=== PATIENT | male | born 1945 | race Caucasian/White ===

== ENCOUNTER 2021-07-14 08:00 | Outpatient (CLI) | payer MEDICARE, OTHER ==
--- NOTE | 2021-07-15 09:04 | XRAY Report ---
PROCEDURE: Chest 2 View X-Ray INDICATIONS: ACUTE COUGH TECHNIQUE: 2 view(s) of the chest. COMPARISON: None. FINDINGS: Surgical changes and devices: None. Lungs: Scattered subsegmental scarring/atelectasis. No acute consolidation. Low lung volumes. Pleura: No pleural effusions or pneumothorax. Mediastinum: Mediastinal contours are normal. Heart size is normal. Bones and chest wall: Age-indeterminate lower thoracic compression fracture although the exact level is unclear. Bilateral shoulder joint degeneration incidentally noted IMPRESSION: Scattered subsegmental scarring/atelectasis. No acute consolidation. Age-indeterminate moderate lower thoracic compression fracture. Please correlate to point tenderness to determine the acuity. Reviewed by: Marshall Salmon MD on 07/15/2021 9:02 AM PST Approved by: Marshall Salmon MD on 07/15/2021 9:02 AM PST Station ID: [id number]
== END 2021-07-14 23:59 | disposition home or self-care (01) ==
LOC: DI.S 08:00
PROVIDERS: ATTEND Physician Assistant
DX: M48.54XA Collapsed vertebra, not elsewhere classified, thoracic region, initial encounter for fracture (principal); R05.1 Acute cough

== ENCOUNTER 2023-10-13 10:40 | Outpatient (CLI) | payer MEDICARE, OTHER | END 2023-10-13 10:41 | disposition home or self-care (01) | LOC: LAB.S 10:40 | PROVIDERS: ATTEND Student in an Organized Health Care Education/Training Program | DX: R33.9 Retention of urine, unspecified (principal) | CPT/HCPCS: 87086 ==

== ENCOUNTER 2024-01-02 08:00 | Outpatient (CLI) | payer MEDICARE, OTHER | END 2024-01-02 23:59 | disposition home or self-care (01) | LOC: LAB.R 08:00 | PROVIDERS: ATTEND Registered Nurse | DX: R26.89 Other abnormalities of gait and mobility (principal) | CPT/HCPCS: 82306 ==